=== PATIENT | female | born 1945 | race Caucasian/White ===

== ENCOUNTER 2021-02-10 11:04 | Observation (INO) | payer MEDICARE, OTHER ==
[2021-02-10] VITALS (11 sets, daily range): BP systolic 123–173; BP diastolic 48–85
[~2021-02-10] VITALS: Ht 165.1 cm; Wt 67.7 kg
[~2021-02-10 11:04] MED LIST: ASPIRIN 81 MG CHEWABLE TABLET PO ONE; DIAZEPAM 5 MG TABLET PO ONE; DiphenhydrAMINE HCL 50 MG CAPSULE PO ONE; SODIUM CHLORIDE 0.9% 1,000 ML IV ONE; SODIUM CHLORIDE 0.9% 1,000 ML ONE
[2021-02-10] MEDS ORDERED: SODIUM CHLORIDE 0.9% 1,000 ML IV ONE (11:30)
[2021-02-10] MEDS ORDERED: DiphenhydrAMINE HCL 50 MG CAPSULE ONE (12:22)
[2021-02-10] MEDS ORDERED: ASPIRIN 81 MG CHEWABLE TABLET ONE (12:22)
[2021-02-10] MEDS ORDERED: DIAZEPAM 5 MG TABLET ONE (12:22)
[2021-02-10 13:10] LABS: GLUCOMETER DEV NAME(LOC) SDS.; GLUCOSE,POINT OF CARE 194 MG/DL (70-110)
[2021-02-10] MEDS ORDERED: MULT-711 PO (13:11)
[2021-02-10] MEDS ORDERED: METF-960 PO (13:11)
[2021-02-10] MEDS ORDERED: METO25XL PO (13:11)
[2021-02-10] MEDS ORDERED: AMLO-258 PO (13:11)
[2021-02-10] MEDS ORDERED: OMEP20 PO (13:11)
[2021-02-10] MEDS ORDERED: LISI-658 PO (13:11)
[2021-02-10] MEDS ORDERED: ASPI-1450 PO (13:11)
[2021-02-10] MEDS ORDERED: CHOL-35 PO (13:11)
[2021-02-10] MEDS ORDERED: IOHEXOL 300 MG/ML 50 ML VIAL ONE ×2 (14:23→16:17)
[2021-02-10] MEDS ORDERED: IOHEXOL 300 MG/ML 100 ML VIAL ONE ×2 (14:23→15:27)
[2021-02-10] MEDS ORDERED: LIDOCAINE/PF 1% 30 ML VIAL ONE (14:23)
[2021-02-10] MEDS ORDERED: SODIUM BICARBONATE 50 MEQ/50 ML VIAL ONE (14:23)
[2021-02-10] MEDS ORDERED: HEPARIN SODIUM 1000 UNITS/NS 1,000 ML ONE (14:23)
[2021-02-10] MEDS ORDERED: IOHEXOL 300 MG/ML 150 ML VIAL ONE ×2 (14:23→15:55)
[2021-02-10] MEDS ORDERED: SITA100 PO (14:27)
[2021-02-10] MEDS ORDERED: MIDAZOLAM HCL 2 MG/2 ML VIAL ONE (14:59)
[2021-02-10] MEDS ORDERED: FentaNYL CITRATE PF 100 MCG/2 ML VIAL ONE (14:59)
[2021-02-10] MEDS ORDERED: FentaNYL CITRATE PF 100 MCG/2 ML VIAL IVP ONE ×2 (15:15→17:45)
[2021-02-10] MEDS ORDERED: MIDAZOLAM HCL 2 MG/2 ML VIAL IVP ONE ×2 (15:15→17:45)
[2021-02-10] MEDS ORDERED: LIDOCAINE 1% 30 ML/SOD BICARB 8.4% 4 ML SQ ONE (15:15)
[2021-02-10] MEDS ORDERED: HEPARIN SODIUM 1000 UNITS/NS 1,000 ML IARTER ONE (15:15)
[2021-02-10] MEDS ORDERED: IOHEXOL 300 MG/ML 150 ML VIAL IARTER ONE (15:15)
[2021-02-10] MEDS ORDERED: TICAGRELOR 90 MG TABLET ONE (15:34)
[2021-02-10] MEDS ORDERED: HEPARIN SODIUM,PORCINE 5,000 UNITS/ML VIAL IVP ONE ×2 (15:45→17:45)
[2021-02-10] MEDS ORDERED: TICAGRELOR 90 MG TABLET PO ONE (15:45)
[2021-02-10] MEDS ORDERED: ALBUTEROL SULFATE 2.5 MG/0.5 ML NEB SOLUTION NEB PRN (21:00)
[2021-02-10] MEDS ORDERED: BISACODYL 10 MG RECTAL RECTAL SUPPOSITORY PR PRN (21:00)
[2021-02-10] MEDS ORDERED: HYDROCODONE/ACETAMINOPHEN 5-325 MG TABLET PO PRN (21:00)
[2021-02-10] MEDS ORDERED: MORPHINE SULFATE 2 MG/ML SYRINGE IVP PRN (21:00)
[2021-02-10] MEDS ORDERED: MAGNESIUM HYDROXIDE SUSPENSION 30 ML UDCUP PO PRN (21:00)
[2021-02-10] MEDS ORDERED: ACETAMINOPHEN 325 MG TABLET PO PRN (21:00)
[2021-02-10] MEDS ORDERED: ZOLPIDEM TARTRATE 5 MG TABLET PO PRN (21:00)
[2021-02-10] MEDS ORDERED: ONDANSETRON HCL 4 MG/2 ML VIAL IVP PRN (21:00)
[2021-02-10] MEDS ORDERED: IPRATROPIUM BROMIDE 0.5 MG/2.5 ML NEB SOLUTION NEB PRN (21:00)
[2021-02-10] MEDS: TICAGRELOR 90 MG TABLET PO SCH (21:29)
[2021-02-11 03:26] VITALS: BP 142/59
[2021-02-11 07:31] VITALS: BP 120/54
[2021-02-11] MEDS: TICAGRELOR 90 MG TABLET PO SCH (08:14)
[2021-02-11] MEDS ORDERED: AmLODIPine BESYLATE 10 MG TABLET PO SCH (09:00)
[2021-02-11] MEDS ORDERED: OMEPRAZOLE 20 MG CAPSULE PO SCH (09:00)
[2021-02-11] MEDS ORDERED: LISINOPRIL 20 MG TABLET PO SCH (09:00)
[2021-02-11] MEDS ORDERED: CHOLECALCIFEROL (VIT D3) 2,000 UNITS [50 MCG] TABLET PO SCH (09:00)
[2021-02-11] MEDS ORDERED: METOPROLOL SUCCINATE 25 MG ER TABLET PO SCH (09:00)
[2021-02-11] MEDS ORDERED: ASPIRIN 81 MG CHEWABLE TABLET PO SCH (09:00)
[2021-02-11] MEDS ORDERED: SitaGLIPtin PHOSPHATE 100 MG TABLET PO SCH (09:00)
[2021-02-11] MEDS ORDERED: MULTIVITAMINS, THERAPEUTIC TABLET PO SCH (09:00)
[2021-02-11] MEDS ORDERED: HYDROCHLOROTHIAZIDE 25 MG TABLET PO SCH (09:00)
[2021-02-11 11:16] VITALS: BP 108/48
[2021-02-11] MEDS ORDERED: TICA90TA PO (11:19)
[2021-02-11] MEDS ORDERED: ATOR40TA28 PO (11:21)
== END 2021-02-11 13:15 | disposition home or self-care (01) ==
LOC: CATHLAB 11:04 → 5S 11:05 → INTOOBSV 11:05
PROVIDERS: ADMIT Hospitalist; ATTEND Internal Medicine Interventional Cardiology
DX: I25.10 Atherosclerotic heart disease of native coronary artery without angina pectoris (principal); E11.9 Type 2 diabetes mellitus without complications; I10 Essential (primary) hypertension; K21.9 Gastro-esophageal reflux disease without esophagitis; Z79.82 Long term (current) use of aspirin; Z79.84 Long term (current) use of oral hypoglycemic drugs; Z79.899 Other long term (current) drug therapy
CPT/HCPCS: 82962; 92920; 92928; 93005; 93459; 99219 ×2; C1760; C1874; C1887; J1644; J2250; J3010; J3490 ×2; J7030; Q9967 ×3